=== PATIENT | male | born 1980 | race African-American/Black ===

== ENCOUNTER 2020-05-02 23:23 | Emergency (ER) | payer OTHER ==
[~2020-05-02] VITALS: Ht 180.3 cm; Wt 100.0 kg
[2020-05-03 00:12] VITALS: BP 153/70
== END 2020-05-03 01:08 | disposition home or self-care (01) ==
LOC: ER 23:23
DX: S60.455A Superficial foreign body of left ring finger, initial encounter (principal); X58.XXXA Exposure to other specified factors, initial encounter; Y93.89 Activity, other specified; Y92.89 Other specified places as the place of occurrence of the external cause; Y99.8 Other external cause status
CPT/HCPCS: 99284

== ENCOUNTER 2020-06-21 04:17 | Emergency (ER) | payer MEDICAID ==
[~2020-06-21] VITALS: Ht 175.3 cm; Wt 91.0 kg
[2020-06-21 04:20] VITALS: BP 147/86
== END 2020-06-21 06:12 | disposition left against medical advice (07) ==
LOC: ER 04:17
DX: R07.89 Other chest pain (principal); Z53.21 Procedure and treatment not carried out due to patient leaving prior to being seen by health care provider
CPT/HCPCS: 93005